=== PATIENT | female | born 1965 | race Two or more races ===

== ENCOUNTER → 2017-02-12 | Outpatient (CLI) | payer MEDICAID ==
[~2017-02-12] VITALS: Ht 165.1 cm; Wt 56.7 kg
== END | disposition home or self-care (01) ==
LOC: Rad HDHVI 10:32
PROVIDERS: ATTEND Internal Medicine Cardiovascular Disease
DX: I10 Essential (primary) hypertension (principal); F41.0 Panic disorder [episodic paroxysmal anxiety]; N81.10 Cystocele, unspecified; F43.9 Reaction to severe stress, unspecified
CPT/HCPCS: 93017

== ENCOUNTER → 2018-09-02 | Outpatient (CLI) | payer MEDICAID | END | disposition home or self-care (01) | LOC: Rad HDHVI 15:55 | PROVIDERS: ATTEND Internal Medicine | DX: I25.10 Atherosclerotic heart disease of native coronary artery without angina pectoris (principal) | CPT/HCPCS: 93306 ==

== ENCOUNTER → 2018-10-01 | Outpatient (CLI) | payer MEDICAID ==
[~2018-10-01] VITALS: Ht 165.1 cm; Wt 58.1 kg
== END | disposition home or self-care (01) ==
LOC: Rad HDHVI 09:29
PROVIDERS: ATTEND Internal Medicine
DX: I25.10 Atherosclerotic heart disease of native coronary artery without angina pectoris (principal); F41.9 Anxiety disorder, unspecified; F43.9 Reaction to severe stress, unspecified; R00.2 Palpitations; M54.9 Dorsalgia, unspecified
CPT/HCPCS: 93017